=== PATIENT | male | born 1975 | race Caucasian/White ===

== ENCOUNTER 2018-08-23 21:13 | Emergency (ER) | payer SELFPAY ==
[~2018-08-23] VITALS: Ht 182.9 cm; Wt 86.2 kg
[2018-08-23 21:23] VITALS: BP 127/103
--- NOTE | 2018-08-23 22:02 | NUR ---
PT AMBULATED TO ER BED 06
--- NOTE | 2018-08-23 22:40 | NUR ---
PATIENT LEFT WITHOUT BEING SEEN BY DR. BARBOSA. NO FURTHER CARE PROVIDED FOR PATIENT.
== END 2018-08-23 22:10 | disposition left against medical advice (07) ==
LOC: MED 21:13
DX: L02.01 Cutaneous abscess of face (principal); Z53.21 Procedure and treatment not carried out due to patient leaving prior to being seen by health care provider

== ENCOUNTER 2018-12-01 18:59 | Emergency (ER) | payer SELFPAY ==
--- NOTE | 2018-12-01 19:07 | NUR ---
CALLED FIRST TIME TO TRIAGE, PT IS NOT IN THE LOBBY OR OUTSIDE.
--- NOTE | 2018-12-01 19:20 | NUR ---
CALLED 2ND TIME FOR TRIAGE, PT IS NOT IN LOBBY OR OUTSIDE, COULD NOT FIND PT, PT LWBS.
== END 2018-12-01 19:07 | disposition left against medical advice (07) ==
LOC: MED 18:59
DX: Z53.21 Procedure and treatment not carried out due to patient leaving prior to being seen by health care provider (principal)

== ENCOUNTER 2021-09-16 22:29 | Emergency (ER) | payer BC ==
[~2021-09-16] VITALS: Ht 180.3 cm; Wt 90.7 kg
--- NOTE | 2021-09-16 22:45 | NUR ---
Dr. Rios at triage to exam patient.
[2021-09-16 22:46] VITALS: BP 167/101
[2021-09-16] MEDS ORDERED: SULFAMETH/TRIMETH DS 800/160MG 1 TAB PO ONE (23:05)
[2021-09-16] MEDS ORDERED: SULF-59 PO (23:07)
[2021-09-16] MEDS ORDERED: IBUP-2218 PO (23:07)
[2021-09-16] MEDS ORDERED: IBUPROFEN 400 MG TAB PO ONE (23:10)
[2021-09-16 23:28] VITALS: BP 154/97
--- NOTE | 2021-09-16 23:28 | NUR ---
Patient discharged with v/s stable. Written and verbal after care instructions given and explained. Patient alert, oriented and verbalized understanding of instructions. Ambulatory with steady gait. All questions addressed prior to discharge. ID band removed. Patient advised to follow up with PMD. Rx of Ibuprofen and Bactrim given. Patient educated on indication of medication including possible reaction and side effects. Opportunity to ask questions provided and answered.
== END 2021-09-16 23:28 | disposition home or self-care (01) ==
LOC: MED 22:29
DX: L02.414 Cutaneous abscess of left upper limb (principal); Z79.899 Other long term (current) drug therapy
CPT/HCPCS: 99283

== ENCOUNTER 2024-02-15 14:59 | Emergency (ER) | payer BC ==
[~2024-02-15] VITALS: Ht 182.9 cm; Wt 95.3 kg
[~2024-02-15 14:59] MED LIST: IBUP-2218 PO; SULF-59 PO
[2024-02-15 15:04] VITALS: BP 155/101; PULSE 129; RESP 18; TEMP 99.2; O2SAT 96
[2024-02-15] MEDS: ACETAMINOPHEN EXTRA STRENGTH 500 MG TAB PO ONE (17:32)
[2024-02-15 17:41] VITALS: BP 136/85; PULSE 98; RESP 19; TEMP 99; O2SAT 98
== END 2024-02-15 17:30 | disposition left against medical advice (07) ==
LOC: MED 14:59
DX: Z48.01 Encounter for change or removal of surgical wound dressing (principal); R50.9 Fever, unspecified; F19.90 Other psychoactive substance use, unspecified, uncomplicated; Z79.899 Other long term (current) drug therapy
CPT/HCPCS: 99282